=== PATIENT | female | born 1980 | race Caucasian/White ===

== ENCOUNTER 2024-04-11 10:45 | Emergency (ER) | payer BC ==
[2024-04-11] MEDS ORDERED: Sodium Chloride 0.9% 10 ML Syringe FLUSH PRN (11:00)
[2024-04-11] MEDS: Sodium Chloride 0.9% 1,000 ML IV SCH ×2 (11:14→12:12)
[2024-04-11] MEDS: Ondansetron 4 MG/2 ML SDV IVPUSH ONE (11:16)
[2024-04-11 11:19] LABS: BASOPHILS ABSOLUTE AUTO 0.02 K/uL (0.02-0.10); BASOPHILS PERCENT AUTO 0.5 % (0.0-0.5); EOSINOPHILS ABSOLUTE AUTO 0.05 K/uL (0.04-0.40); EOSINOPHILS PERCENT AUTO 1.3 % (1.0-5.0); HEMATOCRIT 42.5 % (37.0-47.0); HEMOGLOBIN 14.9 g/dL (11.5-16.5); LYMPHOCYTES ABSOLUTE AUTO 1.01 K/uL (1.50-4.00); LYMPHOCYTES PERCENT AUTO 26.6 % (20.0-40.0); MEAN CORPUSCULAR HEMOGLOBIN 27.3 pg (27.0-32.0); MEAN CORPUSCULAR HGB CONC 35.1 g/dL (31.0-35.0); MEAN CORPUSCULAR VOLUME 78 fL (76-96); MEAN PLATELET VOLUME 10.4 fL (6.0-10.0); MONOCYTES ABSOLUTE AUTO 0.28 K/uL (0.20-0.80); MONOCYTES PERCENT AUTO 7.4 % (3.0-10.0); NEUTROPHILS ABSOLUTE AUTO 2.43 K/uL (2.00-7.50); NEUTROPHILS PERCENT AUTO 64.2 % (45.0-70.0); PLATELET COUNT,PLT 148 K/uL (150-500); RED BLOOD CELL COUNT 5.46 M/uL (3.80-5.80); RED CELL DISTRIBUTION WIDTH 14.7 % (11.0-16.0); WHITE BLOOD CELL COUNT,WBC 3.8 K/uL (4.0-11.0)
[2024-04-11 11:43] LABS: A/G RATIO 0.8 (0.8-2.0); ALBUMIN 3.6 g/dL (3.4-5.0); ANION GAP 13.2 mmol/L (5.0-15.0); BILIRUBIN TOTAL 1.6 mg/dL (0.0-1.0); BUN/CREATININE RATIO 19.5 (6-25); CALCIUM 8.6 mg/dL (8.5-10.1); CARBON DIOXIDE,CO2 23.3 mmol/L (21.0-32.0); CREATININE 0.87 mg/dL (0.55-1.02); EST CRCL DRUG DOSING (CG) 78.86 mL/min; POTASSIUM,K 3.5 mmol/L (3.5-5.1)
[2024-04-11 11:56] LABS: INFLUENZA A NAA NEGATIVE (NEGATIVE); INFLUENZA B NAA NEGATIVE (NEGATIVE); RESPIRATORY SYNCYTIAL VIR NAA NEGATIVE (NEGATIVE)
[2024-04-11 11:57] LABS: CORONAVIRUS COVID-19 NAA NEGATIVE (NEGATIVE)
[2024-04-11] MEDS: Acetaminophen 500 MG Tab PO ONE (12:21)
[2024-04-11] MEDS ORDERED: Ondansetron 4 MG Tab.DIS ONE ×2 (14:00→14:55)
[2024-04-11 15:19] VITALS: BP 120/78; PULSE 78
== END 2024-04-11 15:05 | disposition home or self-care (01) ==
LOC: LB.ED 10:45
DX: K52.9 Noninfective gastroenteritis and colitis, unspecified (principal)
CPT/HCPCS: 0241U; 36415; 80053; 85025; 96361; 96374; 99284-25; A9270-GY; J2405; J7030; Q0162